=== PATIENT | female | born 1980 | race African-American/Black ===

== ENCOUNTER 2018-07-30 11:40 | Emergency (ER) | payer SELFPAY ==
[2018-07-30 12:32] VITALS: BP 130/85; PULSE 78; RESP 16; TEMP 98; O2SAT 100
[2018-07-30] MEDS ORDERED: PREDNISONE 20 MG TAB PO ONE (12:56)
[2018-07-30] MEDS ORDERED: KETOROLAC TROMETHAMINE 30 MG/ML SOL IM ONE (12:56)
[2018-07-30] MEDS ORDERED: CYCLOBENZAPRINE 10 MG TAB PO ONE (12:57)
[2018-07-30] MEDS ORDERED: CYCLOBENZAPRINE 10 MG TAB ONE (13:02)
[2018-07-30] MEDS ORDERED: LIDOCAINE 5% PATCH 1 PATCH TDM TOP ONE (13:02)
[2018-07-30] MEDS ORDERED: KETOROLAC TROMETHAMINE 30 MG/ML SOL ONE (13:02)
== END 2018-07-30 13:57 | disposition home or self-care (01) | DRG 556 ==
LOC: ED 11:40
DX: M62.838 Other muscle spasm (principal); M54.2 Cervicalgia; M25.512 Pain in left shoulder
CPT/HCPCS: 96372; 99283; J1885; A9270-GY

== ENCOUNTER 2018-08-03 00:31 | Emergency (ER) | payer OTHER ==
[2018-08-03 00:31] VITALS: O2SAT 100
[2018-08-03 00:41] VITALS: RESP 20; TEMP 97.2
[2018-08-03] MEDS ORDERED: SOLUMEDROL 125 MG/2 ML 125 MG/2 ML PDS IM ONE (01:06)
[2018-08-03] MEDS ORDERED: SOLUMEDROL 125 MG/2 ML 125 MG/2 ML PDS ONE (01:07)
[2018-08-03 01:32] VITALS: BP 134/89; PULSE 82
== END 2018-08-03 01:22 | disposition home or self-care (01) | DRG 556 ==
LOC: ED 00:31
DX: M25.841 Other specified joint disorders, right hand (principal)
CPT/HCPCS: 96372; 99282; 99283; J2930